=== PATIENT | female | born 1995 | race Caucasian/White ===

== ENCOUNTER 2024-05-22 22:59 | Inpatient (IN) ==
[2024-05-22] MEDS ORDERED: SODIUM CHLORIDE 0.9% 100 ML IV PRN ×2 (23:35→23:40)
[2024-05-22] MEDS ORDERED: SODIUM CHLORIDE 0.9% 50 ML IV PRN ×2 (23:35→23:40)
--- NOTE | 2024-05-22 23:35 | History & Physical Report ---
Date of Service May 22, 2024 Assessment & Plan (1) premature rupture of membranes: Plan: 28 yo at 36 6/7 wga presents w/ PPROM VSS Fetus cat 1 PPROM - will proceed w/ delivery given GA. Will be 37 wks by the time CS begins, defer bmz. Discussed indications, risks, benefits, alternatives with risks including infection, bleeding, injury to adjacent structures (bowel, bladder, ureters, blood vessels, nerves, baby), possible need for blood transfusion and/or life saving hysterectomy, VTE. Consent reviewed in detail w/ pt and signed after all questions answered to her satisfaction. Plan for ancef and azithro, peds and anesthesia made aware History of Present Illness Chief Complaint: SROM Primary Care Provider: Uyen Starks MD 28 yo at 36 6/7 wga presents w/ LOF since 10pm. Stood up and had large gush and continued leaking since, some irreg ctx. 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 2020 sab G2 2022 CS, PPH, mec G3 current denies hx stis Allergies Allergy/AdvReac Type Severity Reaction Status Date / Time shellfish derived Allergy Severe Anaphylaxis Verified 05/17/24 18:20 No Known Drug Allergies Allergy Unknown Verified 05/17/24 18:20 Home Medications Medication Instructions Recorded Confirmed Type albuterol sulfate 90 mcg/actuation 1 - 2 puff inhalation Q4H PRN 11/25/23 05/22/24 History aerosol inhaler SOB/Wheezing vits,calcium 21-iron fum 1 tab PO DAILY 11/25/23 05/22/24 History 14 mg iron-folic acid 400 mcg tablet ( Complete) promethazine 25 mg tablet 25 mg PO Q6H PRN nausea and 01/08/24 05/22/24 Rx vomiting #30 tabs ondansetron 4 mg disintegrating 4 mg PO Q6H #20 tabs 02/22/24 05/22/24 Rx tablet ferrous sulfate [Iron (ferrous 325 mg PO DAILY 03/30/24 05/22/24 History sulfate)] duloxetine 30 mg capsule,delayed 60 mg PO DAILY 04/11/24 05/22/24 History release albuterol sulfate 90 mcg/actuation inhalation 05/22/24 History aerosol inhaler Patient History Medical History (Updated 05/22/24 @ 23:37 by Iliana Kenyon MD) Asthma rescue inhaler-prn Anxiety Anemia Varicella vaccination Surgical History Status post surgery Mandibular surgery/reconstruction Previous section H/O wisdom tooth extraction History of dilatation and curettage Family History Grandfather (Paternal) Myocardial infarction Grandmother (Maternal) Ovarian cancer Denies family history of Prostate cancer Breast cancer Colorectal cancer Social History Smoking Status: Never smoker Do You Dip or Chew Tobacco: No; Hx Alcohol Use: No Hx Substance Use: No Preferred Language: Indian Motion Study Technician Required: No Beliefs That Will Affect Care: None marital status: marital status details: Cesar Rider (25) [phone] Current Living Situation: Spouse Current Living Situation Comment: spouse and child, 2 dogs and 1 cat- changes litter current occupational status: unemployed 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 How many Children do You have: 1 Other Information That Helps Us Care for You: No Feels Safe at Home: Yes Safety Concerns: Feels Safe At This Time Dental Care, Regularly: Yes Seatbelt Use: always Sunscreen Use: Yes Assistive Devices: None Physical Exam Genitourinary: OB Exam Monitor Tracing: + external FHT monitor used, + external uterine monitor used and + category I (145-150/mod/+accel/-decel) SSE + nitrazine, pooling of mec fluid, ferning SVE 3-4/60/-2 Results & Data Vital Signs (Past 12 Hours) Vital Signs Temp Pulse Resp BP 05/22/24 23:21 97.9 F 18 05/22/24 23:16 90 132/67 Laboratory Results OB Labs: Blood Type AB Positive 11/02/23 Antibody Screen NEGATIVE 11/02/23 Hgb 10.4 g/dl (12.0-16.0) L 03/21/24 Hct 32.4 % (37.0-47.0) L 03/21/24 MCV 86.1 fL (80.0-100.0) 02/14/24 Plt Count 200 K/uL (130-400) 02/14/24 Rubella IgG Antibody Immune (Immune) 11/02/23 RPR Nonreactive (Nonreactive) 11/02/23 Treponema pallidum Ab Negative (Negative) 03/21/24 Hep Bs Antigen NON-REACTIVE (NON-REACTIVE) 11/02/23 Hepatitis C Ab (EIA) NON-REACTIVE (NON-REACTIVE) 11/02/23 HIV (1&2) Ag & Ab Conf NON-REACTIVE (NON-REACTIVE) 11/02/23 Glucose 1 Hr 50 gm 118 mg/dl (70-130) 03/21/24 Maternal Serum AFP 14.3 ng/mL 12/28/23 OB Optional Labs: Chlamydia trachomatis RNA Not Detected (NotDetected) 11/02/23 Neisseria gonorrhoeae RNA Not Detected (NotDetected) 11/02/23 Thyroid Stimulating Hormone (TSH) 1.662 uIu/ml (0.300-4.500) 11/25/23 Alpha Fetoprotein Triple Screen SEE NOTE 12/28/23 Labs Reviewed: cfDNA low risk smp horizon 14 neg smp msafp neg, smp GBS+ Diagnostic Findings posterior placenta Coding Level of Care Code None Diagnoses premature rupture of membranes O42.919
[2024-05-22] MEDS ORDERED: PHENYLEPHRINE 100MCG/ML 5ML SYR ONE (23:48)
[2024-05-22] MEDS ORDERED: PHENYLEPHRINE HCL 25 MG/250 ML NSS IV ONE (23:48)
[2024-05-22] MEDS ORDERED: DEXAMETHASONE SOD INJ 4 MG/ML VIAL ONE (23:50)
[2024-05-22] MEDS ORDERED: ONDANSETRON INJ 2 MG/ML 2 ML VIAL ONE (23:50)
[2024-05-22] MEDS ORDERED: fentaNYL citrate PF 100 MCG/2 ML VIAL ONE (23:51)
[2024-05-22] MEDS ORDERED: MoRPHine SULFATE PF 1 MG/ML 10 ML AMP/VIAL ONE (23:51)
[2024-05-22] MEDS: ACETAMINOPHEN 500 MG TAB PO SCH (23:52)
[2024-05-22] MEDS: AZITHROMYCIN 250 MG TAB PO SCH (23:52)
[2024-05-22] MEDS: SODIUM CHLORIDE 0.9% 1,000 ML IV SCH (23:54)
[2024-05-22 23:55] LABS: Hematocrit (blood only) 30.5 % (37.0-47.0); Hemoglobin 9.5 g/dl (12.0-16.0); Mean Corpuscular Hemoglobin 22.4 pg (25.0-34.0); Mean Corpuscular Hgb Conc 31.1 g/dL (32.0-36.0); Mean Corpuscular Volume 71.9 fL (80.0-100.0); Mean Platelet Volume 10.3 fL (9.4-12.4); Platelet Count 153 K/uL (130-400); RDW Coefficient of Variation 15.9 % (11.5-14.5); RDW Standard Deviation 40.5 fL (36.4-46.3); Red Blood Count 4.24 M/uL (4.20-5.40); White Blood Count 10.42 K/ul (4.8-10.8)
--- NOTE | 2024-05-22 23:59 | Anesthesiology Consultation ---
Date of Service May 22, 2024 Assessment & Plan (1) Encounter for pre-operative examination: Chart Review Chart Review: Acceptable Risk for Surgery and Patient NOT seen in Pre Admission Testing Consults Requested none History Height/Weight Height: 5 ft 4 in Weight: 86.636 kg Allergies Allergy/AdvReac Type Severity Reaction Status Date / Time shellfish derived Allergy Severe Anaphylaxis Verified 05/17/24 18:20 No Known Drug Allergies Allergy Unknown Verified 05/17/24 18:20 Medications Home Medications Medication Instructions Recorded Confirmed Last Taken albuterol sulfate 90 mcg/actuation 1 - 2 puff inhalation Q4H PRN 11/25/23 05/22/24 05/22/24 aerosol inhaler SOB/Wheezing vits,calcium 21-iron fum 1 tab PO DAILY 11/25/23 05/22/24 05/17/24 14 mg iron-folic acid 400 mcg tablet ( Complete) promethazine 25 mg tablet 25 mg PO Q6H PRN nausea and 01/08/24 05/22/24 Unknown vomiting #30 tabs ondansetron 4 mg disintegrating 4 mg PO Q6H #20 tabs 02/22/24 05/22/24 Unknown tablet ferrous sulfate [Iron (ferrous 325 mg PO DAILY 03/30/24 05/22/24 05/16/24 sulfate)] duloxetine 30 mg capsule,delayed 60 mg PO DAILY 04/11/24 05/22/24 05/22/24 release albuterol sulfate 90 mcg/actuation inhalation 05/22/24 Unknown aerosol inhaler Active Medications Generic Name Dose Route Start Last Admin Trade Name Freq PRN Reason Stop Dose Admin Sodium Chloride 1,000 mls @ 999 mls/hr 05/22/24 23:45 05/22/24 23:54 Nss IV 05/23/24 00:45 999 mls/hr .Q1H1M SILVINO Administration Past Medical History Medical History (Updated 05/22/24 @ 23:58 by Ventura Hall MD) Encounter for pre-operative examination Asthma rescue inhaler-prn Anxiety Anemia Varicella vaccination Exercise / Class Metabolic Activity II 4-5 Yardwork/Stairs/Walk up hill Past Family History Family History Grandfather (Paternal) Myocardial infarction Grandmother (Maternal) Ovarian cancer Denies family history of Prostate cancer Breast cancer Colorectal cancer Past Surgical History Surgical History Status post surgery Mandibular surgery/reconstruction Previous section H/O wisdom tooth extraction History of dilatation and curettage Past Anesthesia History No Hx of Anesthesia Complications and No Family Hx of Anesthesia Complications History of PONV No Hx of PONV and No Hx of Motion Sickness Social History Smoking Status: Never smoker Do You Dip or Chew Tobacco: No Hx Alcohol Use: No Hx Substance Use: No substance use type: does not use Physical Exam Vital Signs Last Vital Signs Temp 36.6 C 05/22/24 23:21 Pulse 90 05/22/24 23:16 Resp 18 05/22/24 23:21 BP 132/67 05/22/24 23:16 Testing Laboratory Results 05/22/24 23:37
[2024-05-23] MEDS: ceFAZolin 2000MG 2,000 MG/15 ML SYR IV SCH (00:07)
[2024-05-23] MEDS: CITRIC ACID/SODIUM CITRATE 15 ML UDC PO SCH (00:07)
[2024-05-23] MEDS ORDERED: NALOXONE HCL 0.08 MG in SYRINGE 1.8 ML IV PRN (00:33)
[2024-05-23] MEDS ORDERED: PROMETHAZINE 6.25 MG/50.25 ML BAG IV PRN (00:33)
[2024-05-23] MEDS ORDERED: HYDROmorphone INJ 0.5 MG/0.5 ML SYR IV PRN ×2 (00:33→18:33)
[2024-05-23] MEDS ORDERED: ePHEDrine sulfate 50 MG/ML AMP IV PRN (00:33)
[2024-05-23] MEDS ORDERED: NALOXONE HCL 0.4 MG/1 ML VIAL/CARP IV PRN (00:33)
[2024-05-23] MEDS ORDERED: oxyCODONE HCL IR 5 MG TAB (IMMEDIATE RELEASE) PO PRN (00:33)
[2024-05-23] MEDS ORDERED: MoRPHine SULFATE PF 1 MG/ML 10 ML AMP/VIAL INT SPINAL ONE (00:33)
[2024-05-23] MEDS ORDERED: ONDANSETRON INJ 2 MG/ML 2 ML VIAL IV PRN ×2 (00:33→18:33)
[2024-05-23] MEDS ORDERED: NALBUPHINE HCL INJ 10 MG/ML AMP IV PRN (00:33)
[2024-05-23] MEDS ORDERED: NALOXONE HCL 1 MG in SODIUM CHLORIDE 0.9% 1,000 ML IV PRN (00:33)
[2024-05-23] MEDS ORDERED: NO NARCOTICS OR SEDATIVES SCH (00:45)
[2024-05-23] MEDS ORDERED: DC INTRASPINAL MORPHINE SCH (00:45)
[2024-05-23] MEDS ORDERED: SODIUM CHLORIDE 0.9% 1,000 ML IV SCH ×2 (00:45→02:15)
[2024-05-23] MEDS ORDERED: PHENYLEPHRINE 100MCG/ML 5ML SYR ONE (00:58)
[2024-05-23] MEDS ORDERED: ePHEDrine sulfate 50 MG/5 ML SYR ONE (01:14)
--- NOTE | 2024-05-23 01:53 | Operative Report ---
Post Operative Report Pre & Post Diagnosis Single intrauterine at 37 weeks gestation Spontaneous rupture of membranes History of CS x 1, desires repeat I identified the patient and participated in the time-out.: Yes Procedure Repeat Low Transverse Section Surgeon Iliana Kenyon MD Help Desk Internship [facility] Quantitative Blood Loss (QBL) 954 Findings Consistent with Post-Op Diagnosis Normal appearing uterus, bilateral fallopian tubes and ovaries. Viable male infant weighing 8lb 2oz, APGARs of 7 and 9 Specimens Placenta Drains Church draining clear urine Anesthesia Type Spinal Complications none Disposition Accompanied Patient To Recovery: Yes Disposition: L&D Indications 28 yo at 37 wga presented with LOF and confirmed SROM. She desires repeat CS Description of Procedure The patient was taken to the operating room after consents were ensured. The patient was properly identified. Spinal anesthesia was obtained without difficulty. The patient was placed in a dorsal supine position with left lateral tilt, then prepped and draped in normal sterile fashion. Surgical time out was performed. Antibiotics were given for prophylaxis. Anesthesia was tested to ensure adequate surgical levels. Pfannenstiel skin incision was performed and carried down to the underlying fascia with a knife. The fascia was then nicked in the midline and extended laterally with pickups and Acevedo scissors. Superior portion of the fascia was grasped with Kochers x2 and elevated off the underlying rectus muscles using blunt dissection. Inferior portion of the fascia was then grasped with Momo clamps x2 and also elevated off the underlying muscles with blunt dissection. Midline was identified. The peritoneum was then entered and extended to provide adequate room for delivery of baby. A hand was inserted into the abdomen, uterus was noted to be clear of adhesions. Bladder blade was inserted, bladder flap was created in the usual fashion. A low transverse uterine incision was made in the uterus and extended bluntly in a superior to inferior fashion. Amniotomy was made with clear fluid at the time of rupture. head was grasped and elevated to the hysterotomy in an atraumatic fashion however would not deliver through. Vacuum was applied to the flexion point with care to avoid entrapping maternal tissue and suction increased to the green zone. With fundal pressure, vacuum was pulled and The baby delivered in EULALIA position, no nuchal cord. Remainder of the body delivered without incident. Nose and mouth were bulb suctioned on the surgical field. The cord was double clamped and cut, baby was handed off to awaiting pediatrics staff. Cord segment and blood were obtained. Placenta was then expressed from the uterus. The uterus was exteriorized. Several passes were made inside the uterus to remove the remaining membranes. Attention was then turned to the hysterotomy, which was then closed with a running locked suture of 0 Vicryl on a CTX needle. An imbricating layer was then performed using 0-Monocryl. There was noted to be good hemostasis. The posterior cul-de-sac was then inspected and cleaned of clot and debris. The hysterotomy was again inspected and noted to be hemostatic. The uterus was returned to the abdomen. The right and left pericolic gutters were cleaned of all clot and debris. The hysterotomy was again noted to be hemostatic. Space of Retzius was noted to be hemostatic. The fascia was then closed with a running suture of 0 Vicryl on a CT1 needle. Subcutaneous tissue was copiously irrigated and noted to be hemostatic. Subcutaneous tissue was re-approximated using 2-0 plain gut. The skin was then closed with a running suture of 3-0 Monocryl in a subcuticular fashion. At termination of the procedure, fundal pressure was applied and a moderate amount of lochia was expressed. Pressure dressing was applied to the patient. She tolerated the procedure well. All sponge, needle, instrument counts were correct x 2. I attest to the content of the Intraoperative Record and any orders documented therein. Any exceptions are noted below. OB Procedure Charges 76351
--- NOTE | 2024-05-23 01:54 | Anesthesiology Progress Note ---
Date of Service May 23, 2024 Anesthesia Post Procedure Vital Signs Vital Signs: Temp Pulse Resp BP Pulse Ox 05/23/24 01:50 82 111/59 L 05/23/24 01:48 96 H 100 05/22/24 23:21 36.6 C 18 05/22/24 23:16 90 132/67 Transfer of Care Handoff Completed per policy Notes Mental Status: alert / awake / arousable and participated in evaluation Patient Amnestic to Procedure: No Nausea / Vomiting: adequately controlled Pain: adequately controlled Airway Patency, RR, SpO2: stable & adequate BP & HR: stable & adequate Hydration State: stable & adequate Neuraxial Anesthesia: was administered and sensory block is resolving Anesthetic Complications: no major complications apparent and Pt Satisfied with anesthetic care
[2024-05-23] MEDS ORDERED: MAGNESIUM HYDROXIDE SUSP 30 ML UDC PO PRN (02:15)
[2024-05-23] MEDS ORDERED: SENNA 8.6 MG TAB PO PRN (02:15)
[2024-05-23] MEDS ORDERED: HYDROCORTISONE ACETATE 25 MG SUPP PR PRN (02:15)
[2024-05-23] MEDS ORDERED: BENZOCAINE 20% SPRY 85 APPLN/85 GM CAN EXT PRN (02:15)
[2024-05-23] MEDS ORDERED: ALBUTEROL HFA 8 GM INHALER INH PRN (02:15)
[2024-05-23] MEDS ORDERED: CALCIUM CARBONATE 500 MG CHEWABLE TAB PO PRN (02:15)
[2024-05-23] MEDS: KETOROLAC 30 MG/ML VIAL IV SCH (02:37)
[2024-05-23] MEDS: diphenhydrAMINE 50 MG/ML VIAL IV PRN (05:44)
[2024-05-23] MEDS ORDERED: AZITHROMYCIN 500 MG in SODIUM CHLORIDE 0.9% 250 ML IV SCH (06:00)
[2024-05-23] MEDS: OXYTOCIN 20 UNITS/LR 1,002 ML IV SCH (06:23)
[2024-05-23] MEDS: DOCUSATE SODIUM 100 MG CAP PO SCH (08:56)
[2024-05-23] MEDS: SIMETHICONE 80 MG CHEW PO SCH (08:56)
[2024-05-23] MEDS: ACETAMINOPHEN 325 MG TAB PO SCH (08:56)
[2024-05-23] MEDS: PRENATAL VITAMIN 1 TAB PO SCH (08:56)
[2024-05-23] MEDS: FERROUS SULFATE 325 MG TAB PO SCH (08:56)
[2024-05-23] MEDS: DULoxetine HCL 60 MG CAP PO SCH (09:59)
[2024-05-23] MEDS ORDERED: diphenhydrAMINE Capsule 25 MG CAP PO PRN (18:33)
[2024-05-23] MEDS ORDERED: diphenhydrAMINE 50 MG/ML VIAL IV PRN (18:33)
[2024-05-23] MEDS ORDERED: PROMETHAZINE 12.5 MG/50.5 ML BAG IV PRN (18:33)
[2024-05-23] MEDS: DIPHTHER/TETAN/PERTUS Vaccine (Tdap, Adol/Adult) 0.5mL IM ONE (23:04)
[2024-05-24] MEDS ORDERED: KETOROLAC 30 MG/ML VIAL IV PRN (01:39)
[2024-05-24] MEDS: IBUPROFEN 600 MG TAB PO SCH (02:40)
[2024-05-24 06:22] LABS: Basophils # (auto) 0.03 K/uL (0.00-0.20); Basophils % (auto) 0.3 %; Eosinophils % (auto) 0.8 %; Hematocrit (blood only) 25.3 % (37.0-47.0); Hemoglobin 7.8 g/dl (12.0-16.0); Immature Granulocytes # (auto) 0.17 K/uL (0.01-0.20); Immature Granulocytes % (auto) 1.4 %; Lymphocytes # (auto) 2.81 K/uL (1.20-3.40); Lymphocytes % (auto) 23.4 %; Mean Corpuscular Hemoglobin 22.3 pg (25.0-34.0); Mean Corpuscular Hgb Conc 30.8 g/dL (32.0-36.0); Mean Corpuscular Volume 72.3 fL (80.0-100.0); Mean Platelet Volume 10.5 fL (9.4-12.4); Monocytes # (auto) 0.77 K/uL (0.11-0.59); Monocytes % (auto) 6.4 %; Neutrophils # (auto) 8.11 K/uL (1.40-6.50); Neutrophils % (auto) 67.7 %; Nucleated RBC # (auto) 0.02 K/uL (0.00-0.12); Nucleated RBC % (auto) 0.2 %; Platelet Count 151 K/uL (130-400); RDW Coefficient of Variation 15.9 % (11.5-14.5); RDW Standard Deviation 40.7 fL (36.4-46.3); White Blood Count 11.99 K/ul (4.8-10.8)
[2024-05-24 06:46] LABS: Polychromasia 1+
--- NOTE | 2024-05-24 07:07 | Obstetrical Progress Note ---
Date of Service May 24, 2024 Assessment & Plan (1) delivery delivered: Plan Plan: 28 years A1 at 37 week POG. 2 POD following Delivery Both mom and baby doing well. Continue care as per protocol. Encouraged nursing with mother's milk. Encouraged ambulation. Encouraged deep breathing. Admission and Anticipated Discharge Date Admission Date: May 22, 2024 Supervising Physician Co-Signing Physician Notes Resident Physician Supervision Note: I was present with Dr. Tovar during the history and exam. I discussed the case with the resident and agree with the findings and plan as documented in the note. Any exceptions or clarifications are listed here: POD#1 doing well - routine postop care. Incision with red on bandage, but incision is CDI with no active bleeding. Documented By: Lacey Barrera, DO Rom[place] 28 years A1 at 37 week POG. 2nd POD following delivery No active complains Both mom and baby doing well. Mom Lying comfortable on bed. Pain: Mild, intermittent, manageable on painkillers. Lochia: Moderate Diet: Regular OB diet Gas: Pasisng Peeing: Passed Urine after mora's removal Ambulation: to Bathroom/ Corridor without any complication Answered her queries. Review of Systems Review of Systems: As per HPI Physical Exam Physical Exam: General: Alert and oriented. No acute distress. CVS: S1 S2+ No murmurs, regular rhythm. Respiratory: CTA bilaterally. No rhonchi, wheezes, or crackles. No increased work of breathing. Abdomen: Bowel sound +. Soft, nontender Uterus: Fundus firm and palpable few cm below the umbilicus. Incision site looks healthy: Dry, No swelling, Erythema Lower extremities: No LE edema. No deep calf pain. Results & Data Vital Signs (Past 12 Hours) Vital Signs Temp Pulse Resp BP Pulse Ox O2 Del Method 05/23/24 23:15 36.8 C 69 18 108/66 05/23/24 19:45 36.8 C 91 H 18 106/68 94 Room Air
[2024-05-24] MEDS: oxyCODONE HCL IR 5 MG TAB (IMMEDIATE RELEASE) PO PRN (17:26)
[2024-05-24] MEDS: bisacodyL 5 MG TABEC PO SCH (20:46)
[2024-05-25] MEDS: IBUPROFEN 600 MG TAB PO PRN (01:21)
[2024-05-25] MEDS ORDERED: bisacodyL 10 MG SUPP PR PRN (01:39)
[2024-05-25 06:58] LABS: Hematocrit (blood only) 25.8 % (37.0-47.0); Hemoglobin 7.9 g/dl (12.0-16.0)
[2024-05-25] MEDS: ACETAMINOPHEN 325 MG TAB PO PRN (07:46)
--- NOTE | 2024-05-25 07:52 | Obstetrical Progress Note ---
Date of Service May 25, 2024 Assessment & Plan Admission and Anticipated Discharge Date Admission Date: May 22, 2024 Subjective years P at ... week POG. ...POD following delivery No active complains Both mom and baby doing well. Mom Lying comfortable on bed. Pain: Mild, intermittent, manageable on painkillers. Lochia: Moderate Diet: Regular OB diet Gas: Not aware of passing, but no abdominal distension Peeing: Passed Urine after mora's removal Ambulation: to Bathroom/ Corridor without any complication Answered her queries. Plan: years P at ... week POG. ...POD following Cesar Both mom and baby doing well. Continue care as per protocol. Encouraged nursing with mother's milk. Encouraged ambulation. Encouraged deep breathing. Discharge today as per protocol. Results & Data Vital Signs (Past 12 Hours) Vital Signs Temp Pulse Resp BP Pulse Ox O2 Del Method 05/25/24 00:40 36.6 C 84 18 121/76 95 Room Air 05/24/24 20:26 36.8 C 83 18 117/77 98 Room Air
--- NOTE | 2024-05-25 07:59 | Obstetrical Progress Note ---
Date of Service May 25, 2024 Assessment & Plan (1) delivery delivered: Plan Plan: 28 years A1 at 37 week POG. 2 POD following Delivery Both mom and baby doing well. Continue care as per protocol. Encouraged nursing with mother's milk. Encouraged ambulation. Encouraged deep breathing. Ready to go home today. Will discharge home today. Continue taking iron tablets. Follow up with Dr Kenyon after 6 weeks Admission and Anticipated Discharge Date Admission Date: May 22, 2024 Supervising Physician Co-Signing Physician Notes Resident Physician Supervision Note: I was present with Dr. Tovar during the history and exam. I discussed the case with the resident and agree with the findings and plan as documented in the note. Any exceptions or clarifications are listed here: [None] Documented By: Kalapna Beard MD, FACOG Subjective 28 years ; A1 37 WGA. #2 POD following delivery No active complains Both mom and baby doing well. Mom Lying comfortable on bed. Pain: Mild, intermittent Lochia: Moderate Diet: Regular OB diet Bowel Movement: No BM after surgery Gas: Aware of passing, no abdominal distension Peeing: Passed Urine after mora's removal Ambulation: to Bathroom/ Corridor without any complication Answered her queries. Review of Systems Review of Systems: As per HPI Physical Exam Physical Exam: General: Alert and oriented. No acute distress. CVS: S1 S2+ No murmurs, regular rhythm. Respiratory: CTA bilaterally. No rhonchi, wheezes, or crackles. No increased work of breathing. Abdomen: Bowel sound +. Soft, mild tenderness Uterus: Fundus firm and palpable few cm below the umbilicus. Incision site looks healthy: Dry, No swelling, Erythema Lower extremities: No LE edema. No deep calf pain. Results & Data Vital Signs (Past 12 Hours) Vital Signs Temp Pulse Resp BP Pulse Ox O2 Del Method 05/25/24 00:40 36.6 C 84 18 121/76 95 Room Air 05/24/24 20:26 36.8 C 83 18 117/77 98 Room Air
[2024-05-25 08:01] VITALS: BP 120/77; PULSE 83; RESP 20; TEMP 97.5; O2SAT 98
== END 2024-05-25 10:50 | disposition home or self-care (01) | DRG 788 ==
LOC: OPB 22:59 → 4S1 23:00 → 4E2 05-23 04:10